=== PATIENT | male | born 1950 | race American Indian/Alaskan Native ===

== ENCOUNTER 2016-09-26 20:26 | Inpatient (IN) | payer OTHER ==
--- NOTE | 2016-09-26 22:37 | C.PDOC ---
History Of Present Illness <Aditi Zepeda - Last Filed: 09/26/16 23:08> <Quentin Gonzalez E - Last Filed: 09/27/16 00:25> 65 y/o male with hx of stents in legs about 4-5 yes ago for poor circulation, no follow up, presents to ED with a 2 day of bilateral leg pain and 'numbness', that feels like what pain felt when he first had circulatory problems in legs. pain in right leg worse than left, starts at hip and runs down leg., denies cp, sob, abdominal pain. (Aditi Zepeda) History/Exam Limitations: no limitations Onset/Duration Of Symptoms: Days (2) Current Symptoms Are (Timing): Still Present Severity: Moderate <Aditi Zepeda - Last Filed: 09/26/16 23:08> <Quentin Gonzalez E - Last Filed: 09/27/16 00:25> Time Seen by Provider: 09/26/16 22:08 Chief Complaint (Nursing): Hip Pain Past Medical History Reviewed: Historical Data, Nursing Documentation, Vital Signs - Medical History Other PMH: peripheral vascular disease Other Surgeries: bilateral leg stents Family History: States: Unknown Family Hx - Social History Hx Alcohol Use: No Hx Substance Use: No - Immunization History Hx Tetanus Toxoid Vaccination: No Hx Influenza Vaccination: No Hx Pneumococcal Vaccination: No <Aditi Zepeda - Last Filed: 09/26/16 23:08> Review Of Systems Constitutional: Negative for: Fever, Chills Cardiovascular: Negative for: Chest Pain, Palpitations Respiratory: Negative for: Cough, Shortness of Breath Gastrointestinal: Negative for: Vomiting, Abdominal Pain, Diarrhea Skin: Negative for: Rash, Lesions <Aditi Zepeda - Last Filed: 09/26/16 23:08> Physical Exam - Physical Exam Appears: Non-toxic, No Acute Distress Skin: Warm, Dry (skin extremely dry, scaly and flaky, eamon on lower ext) Respiratory: Normal Breath Sounds, No Rales, No Rhonchi, No Stridor, No Wheezing Gastrointestinal/Abdominal: Bowel Sounds, Soft, No Tenderness Pulses: Left Femoral: Decreased, Right Femoral: Decreased, Left Dorsalis Pedis: Absent, Right Dorsalis Pedis: Absent Neurological/Psych: Oriented x3, Normal Speech, Normal Cognition, Normal Motor <Aditi Zepeda - Last Filed: 09/26/16 23:08> ED Course And Treatment O2 Sat by Pulse Oximetry: 99 <Aditi Zepeda - Last Filed: 09/26/16 23:08> - Laboratory Results Result Diagrams: 09/26/16 23:01 09/26/16 23:46 Lab Interpretation: Abnormal Interpretation Of Abnormal: Renal insufficiency. Leukocytosis. ECG: Interpreted By Me, Viewed By Me ECG Rhythm: Sinus Rhythm, Nonspecific Changes ECG Interpretation: No Acute Changes Rate From EC Progress Note: Plan was to obtain CTA of lower extremities to check for arterial occlusion, however pt's renal function is not normal. Also, arterial duplex ultrasound is not available at this time. Will start pt on Heparin drip and admit for further evaluation and treatment. <Quentin Gonzalez E - Last Filed: 09/27/16 00:25> Medical Decision Making <Aditi Zepeda - Last Filed: 09/26/16 23:08> <Quentin Gonzalez E - Last Filed: 09/27/16 00:25> Medical Decision Makin65 y/o male with markedly decreased lower ext femoral pulses (right fainter than left)and non palpable dp and tp pulses in both lower ext; marilee get labs and do ct angio of lower extremities. (Aditi Zepeda) Disposition <Aditi Zepeda - Last Filed: 09/26/16 23:08> Discussed With DrRomelia: Shauna Giles Comment: He agrees with current management/plan and accepted pt on his service. Doctor Will See Patient In The: Hospital Counseled Patient/Family Regarding: Studies Performed, Diagnosis - Disposition Disposition Time: 00:23 <Quentin Gonzalez E - Last Filed: 09/27/16 00:25> - Disposition Disposition: HOSPITALIZED Condition: GUARDED - Clinical Impression Clinical Impression: Absent pedal pulses, Bilateral lower extremity pain - PA / EAP COUNSELOR / Resident Statement MD/DO has examined the patient and agrees with the treatment plan. <Quentin Gonzalez - Last Filed: 09/27/16 00:25>
[2016-09-26] MEDS ORDERED: Sodium Chloride 0.9% 1,000 ML IV ONE (22:44)
[2016-09-26 23:04] LABS: BASO # 0.1 K/uL (0.0-0.2); BASO % 0.7 % (0.0-2.0); HEMATOCRIT 44.7 % (35.0-51.0); LYMPH # 1.3 K/uL (1.0-4.3); LYMPH % 8.2 % (20.0-40.0); MEAN CELL VOLUME 94.5 fL (80.0-94.0); MEAN CORPUSCULAR HEMOGLOBIN 30.5 pg (27.0-31.0); MEAN CORPUSCULAR HGB CONC 32.2 g/dL (33.0-37.0); MEAN PLATELET VOLUME 9.2 fL (7.2-11.7); MONO # 1.5 K/uL (0.0-0.8); MONO % 9.1 % (0.0-10.0); PLATELET COUNT 177 K/uL (130-400); RED CELL DISTRIBUTION WIDTH 13.8 % (11.5-14.5); WHITE BLOOD COUNT 16.4 K/uL (4.8-10.8)
[2016-09-26 23:19] LABS: INR 1.1
[2016-09-26 23:41] LABS: NEUTROPHIL 80 % (50-75); TOTAL CELLS COUNTED 100
[2016-09-26 23:57] LABS: POTASSIUM 3.7 mmol/L (3.6-5.2)
[2016-09-27] LABS: ALB/GLOB RATIO 1.2 (1.0-2.1); CALCIUM 9.2 mg/dl (8.6-10.4); TOTAL PROTEIN 8.3 g/dL (6.3-8.3)
[2016-09-27] MEDS ORDERED: Heparin 25,000units in D5W 25,000 UNITS/250 ML BAG IV STA (00:18)
[2016-09-27] MEDS ORDERED: Heparin25000 units/250ml 1/2NS 25,000 UNITS/250 ML BAG IV STA (00:28)
--- NOTE | 2016-09-27 09:21 | CP.PCM.CON ---
<Kimo Yuen - Last Filed: 09/27/16 19:16> History of Present Illness - History of Present Illness History of Present Illness: Pt is a 65 yo M w/ PMHx of substance abuse and PAD w/ complaint of cramping leg pain. Pain began 2 days ago and localized to the R calf. Patient reports pain is intermittent and exacerbated by physical activity and relieved with rest. Patient reports R hip experiences cramping pain as well. Patient admits to fever , chills, headache, SOB, palpitations, vomiting and diarrhea. 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 absent: Chest Pain - Respiratory Respiratory: Dyspnea. absent: Cough - Gastrointestinal Gastrointestinal: Diarrhea, Vomiting. absent: Constipation, Nausea - Genitourinary Genitourinary: absent: Dysuria, Urinary Frequency - Musculoskeletal Musculoskeletal: absent: Joint Swelling - Integumentary Integumentary: absent: Rash, Sores, Swelling - Neurological Neurological: absent: Numbness, Tingling - Endocrine Endocrine: Palpitations. absent: Change in Body Appearance Past Patient History - Past Medical History & Family History Past Medical History?: Yes - Past Social History Smoking Status: Heavy Smoker > 10 Cigarettes Daily - CARDIAC Hx Circulatory Problems: Yes (PVD) - PULMONARY Hx Respiratory Disorders: No - NEUROLOGICAL Hx Neurological Disorder: No - HEENT Hx HEENT Problems: No - RENAL Hx Chronic Kidney Disease: No - ENDOCRINE/METABOLIC Hx Endocrine Disorders: No - HEMATOLOGICAL/ONCOLOGICAL Hx Blood Disorders: No - INTEGUMENTARY Hx Dermatological Problems: No - MUSCULOSKELETAL/RHEUMATOLOGICAL Hx Falls: No - GENITOURINARY/GYNECOLOGICAL Hx Genitourinary Disorders: No - PSYCHIATRIC Hx Substance Use: No - SURGICAL HISTORY Hx Surgeries: Yes Other/Comment: RIGHT LEG STENT - ANESTHESIA Hx Anesthesia: Yes Hx Anesthesia Reactions: No Hx Malignant Hyperthermia: No Has any member of the family had a problem w/ anesthesia?: No Meds Allergies/Adverse Reactions: Allergies Allergy/AdvReac Type Severity Reaction Status Date / Time No Known Allergies Allergy Verified 09/26/16 21:02 - Medications Medications: Current Medications Aspirin (Ecotrin) 325 mg PO DAILY [facility] Cilostazol (Pletal) 100 mg PO BID [facility] Heparin Sodium/Sodium Chloride (Heparin 99345 Units/250ml 1/2 Normal Saline) 25 ,000 units in 250 mls @ 12.247 mls/hr IV .[id number] STA; 18 UNITS/KG/HR PRN Reason: Protocol Stop: 09/27/16 20:52 Last Admin: 09/27/16 02:00 Dose: 18 units/kg/hr, 12.247 mls/hr Pantoprazole Sodium (Protonix Ec Tab) 40 mg PO DAILY [facility] Physical Exam - Constitutional Appears: Well, Non-toxic - Head Exam Head Exam: ATRAUMATIC, NORMOCEPHALIC - Eye Exam Eye Exam: Normal appearance - ENT Exam ENT Exam: Normal Exam - Respiratory Exam Respiratory Exam: Clear to Auscultation Bilateral, NORMAL BREATHING PATTERN - Cardiovascular Exam Cardiovascular Exam: Irregular Rhythm, +S1, +S2 - GI/Abdominal Exam GI & Abdominal Exam: Normal Bowel Sounds - Extremities Exam Extremities exam: Positive for: calf tenderness, normal capillary refill. Negative for: pedal pulses present Additional comments: Absent dorsalis pedis and posterior tibial pulses BL Weak popliteal pulses BL Absent R femoral pulse - Neurological Exam Neurological exam: Alert Additional comments: absent sensation to touch in R LE in L5-S1 dermatome. - Skin Skin Exam: Dry Results - Vital Signs Recent Vital Signs: Last Vital Signs Temp 98 F 09/27/16 04:00 Pulse 73 09/27/16 04:00 Resp 18 09/27/16 04:00 BP 121/65 09/27/16 04:00 Pulse Ox 96 09/27/16 04:00 - Labs Result Diagrams: 09/27/16 11:25 09/27/16 11:25 Assessment & Plan - Assessment and Plan (Free Text) Assessment: Pt is a 65 year old M complaining of leg clamps. Plan: CTA w/ illeofemoral runoff once Cr improves will d/w Dr Clarissa Yuen, PGY2 - Date & Time Date: 09/27/16 Time: 19:17 <Luc Romo - Last Filed: 09/28/16 14:22> Meds - Medications Medications: Current Medications Aspirin (Ecotrin) 325 mg PO DAILY [facility] Last Admin: 09/28/16 10:15 Dose: 325 mg Cilostazol (Pletal) 100 mg PO BID [facility] Last Admin: 09/28/16 13:48 Dose: 100 mg Sodium Chloride (Sodium Chloride 0.9%) 1,000 mls @ 100 mls/hr IV .Q10H [facility] Last Admin: 09/28/16 06:34 Dose: 100 mls/hr Heparin Sodium/Sodium Chloride (Heparin 28484 Units/250ml 1/2 Normal Saline) 25 ,000 units in 250 mls @ 16.054 mls/hr IV .[id number] PRN; Protocol; 23 UNITS/KG/HR PRN Reason: PROTOCOL Last Admin: 09/28/16 13:50 Dose: 23 units/kg/hr, 16.054 mls/hr Pantoprazole Sodium (Protonix Ec Tab) 40 mg PO DAILY [facility] Last Admin: 09/28/16 10:15 Dose: 40 mg Temazepam (Restoril) 15 mg PO HS PRN PRN Reason: Insomnia Last Admin: 09/28/16 13:48 Dose: 15 mg Results - Vital Signs Recent Vital Signs: Last Vital Signs Temp 99.2 F 09/28/16 00:00 Pulse 82 09/28/16 08:00 Resp 20 09/28/16 06:00 BP 127/62 09/28/16 06:00 Pulse Ox 97 09/28/16 06:00 - Labs Result Diagrams: 09/28/16 06:21 09/28/16 06:21 Labs: Laboratory Results - last 24 hr 09/27/16 09/27/16 09/28/16 14:45 22:00 06:21 WBC RBC Hgb Hct MCV MCH MCHC RDW Plt Count MPV APTT 24 D 27 Sodium 138 Potassium 4.1 Chloride 110 H Carbon Dioxide 19 L Anion Gap 13 BUN 21 H Creatinine 1.4 Est GFR ( Amer) > 60 Est GFR (Non-Af Amer) 51 Random Glucose 100 Calcium 8.6 Urine Opiates Screen Urine Methadone Screen Ur Barbiturates Screen Ur Phencyclidine Scrn Ur Amphetamines Screen U Benzodiazepines Scrn U Oth Cocaine Metabols U Cannabinoids Screen 09/28/16 09/28/16 09/28/16 06:21 08:30 11:22 WBC 11.2 H RBC 3.92 L Hgb 12.0 Hct 37.4 MCV 95.3 H MCH 30.6 MCHC 32.1 L RDW 13.5 Plt Count 142 MPV 9.6 APTT > 400 H* D > 400 H* Sodium Potassium Chloride Carbon Dioxide Anion Gap BUN Creatinine Est GFR ( Amer) Est GFR (Non-Af Amer) Random Glucose Calcium Urine Opiates Screen Urine Methadone Screen Ur Barbiturates Screen Ur Phencyclidine Scrn Ur Amphetamines Screen U Benzodiazepines Scrn U Oth Cocaine Metabols U Cannabinoids Screen 09/28/16 13:05 WBC RBC Hgb Hct MCV MCH MCHC RDW Plt Count MPV APTT Sodium Potassium Chloride Carbon Dioxide Anion Gap BUN Creatinine Est GFR ( Amer) Est GFR (Non-Af Amer) Random Glucose Calcium Urine Opiates Screen Positive Urine Methadone Screen Negative Ur Barbiturates Screen Negative Ur Phencyclidine Scrn Negative Ur Amphetamines Screen Negative U Benzodiazepines Scrn Positive U Oth Cocaine Metabols Negative U Cannabinoids Screen Negative Assessment & Plan - Assessment and Plan (Free Text) Assessment: Patient seen and examined. History reviewed. Patient with known peripheral arterial disease who underwent, by his report, arterial stenting in his lower extremities 4-5 years ago in one of [facility]. Patient has been doing reasonably well until this this presentation when he developed pain in his lower extremities bilaterally worse on the right. He was admitted to the ICU at [facility] and started on Heparin drip with improvement of his lower extremities pain. He was found to have increased creatinine and complained of heroine withdrawal symptoms. Lower extremities are exhibiting signs of advanced peripheral arterial disease and chronic ischemia. Clinically, lower extremities show no signs of infection, gangrene, tissue loss or profound motor-sensory compromise. Lower extremities do not appear immediately threatened at this moment. Patient needs contrast evaluation of his lower extremities arterial supply with CT angiogram of the abdomen, pelvis and lower extremities which we plan to obtain once patient is hydrated and his renal function improves. Patient quite likely will need diagnostic, possibly therapeutic angiogram, but we'll leave this decision till after review of CT angio. Thank you for your consult and allowing us to participate in this patient's care.
[2016-09-27] MEDS: Aspirin 325 mg EC Tablets PO SCH (10:38)
[2016-09-27] MEDS: Pantoprazole 40 mg EC Tab PO SCH (10:38)
[2016-09-27] MEDS: Cilostazol 100 mg Tab UD PO SCH ×2 (10:38→20:03)
[2016-09-27 11:32] LABS: BASO # 0.1 K/uL (0.0-0.2); BASO % 0.8 % (0.0-2.0); EOS % 0.1 % (0.0-4.0); HEMATOCRIT 40.3 % (35.0-51.0); LYMPH # 2.7 K/uL (1.0-4.3); LYMPH % 19.4 % (20.0-40.0); MEAN CELL VOLUME 94.9 fL (80.0-94.0); MEAN CORPUSCULAR HEMOGLOBIN 30.4 pg (27.0-31.0); MEAN PLATELET VOLUME 9.4 fL (7.2-11.7); MONO # 0.9 K/uL (0.0-0.8); MONO % 6.8 % (0.0-10.0); RED CELL DISTRIBUTION WIDTH 13.5 % (11.5-14.5); WHITE BLOOD COUNT 13.8 K/uL (4.8-10.8)
[2016-09-27 11:49] LABS: POTASSIUM 3.4 mmol/L (3.6-5.2)
[2016-09-27 11:51] LABS: ALB/GLOB RATIO 1.2 (1.0-2.1); BILIRUBIN,TOTAL 1.2 mg/dL (0.2-1.3); PHOSPHOROUS 3.1 mg/dL (2.5-4.5); TOTAL PROTEIN 7.6 g/dL (6.3-8.3)
[2016-09-27 11:52] LABS: CALCIUM 8.8 mg/dl (8.6-10.4); MAGNESIUM 2.1 mg/dL (1.6-2.3)
--- NOTE | 2016-09-27 12:04 | CP.PCM.HP ---
Past Patient History - Past Medical History & Family History Past Medical History?: Yes - Past Social History Smoking Status: Heavy Smoker > 10 Cigarettes Daily - CARDIAC Hx Circulatory Problems: Yes (PVD) - PULMONARY Hx Respiratory Disorders: No - NEUROLOGICAL Hx Neurological Disorder: No - HEENT Hx HEENT Problems: No - RENAL Hx Chronic Kidney Disease: No - ENDOCRINE/METABOLIC Hx Endocrine Disorders: No - HEMATOLOGICAL/ONCOLOGICAL Hx Blood Disorders: No - INTEGUMENTARY Hx Dermatological Problems: No - MUSCULOSKELETAL/RHEUMATOLOGICAL Hx Falls: No - GENITOURINARY/GYNECOLOGICAL Hx Genitourinary Disorders: No - PSYCHIATRIC Hx Substance Use: No - SURGICAL HISTORY Hx Surgeries: Yes Other/Comment: RIGHT LEG STENT - ANESTHESIA Hx Anesthesia: Yes Hx Anesthesia Reactions: No Hx Malignant Hyperthermia: No Has any member of the family had a problem w/ anesthesia?: No Meds Allergies/Adverse Reactions: Allergies Allergy/AdvReac Type Severity Reaction Status Date / Time No Known Allergies Allergy Verified 09/26/16 21:02 Physical Exam - Constitutional Appears: Well - Head Exam Head Exam: ATRAUMATIC, NORMAL INSPECTION, NORMOCEPHALIC - Eye Exam Eye Exam: EOMI, Normal appearance, PERRL Pupil Exam: NORMAL ACCOMODATION, PERRL - ENT Exam ENT Exam: Mucous Membranes Moist, Normal Exam - Neck Exam Neck exam: Positive for: Normal Inspection - Respiratory Exam Respiratory Exam: Decreased Breath Sounds - Cardiovascular Exam Cardiovascular Exam: REGULAR RHYTHM, +S1, +S2 - GI/Abdominal Exam GI & Abdominal Exam: Diminished Bowel Sounds, Soft - Rectal Exam Rectal Exam: Deferred Results - Vital Signs Recent Vital Signs: Last Vital Signs Temp 98 F 09/27/16 04:00 Pulse 73 09/27/16 04:00 Resp 18 09/27/16 04:00 BP 121/65 09/27/16 04:00 Pulse Ox 96 09/27/16 04:00 - Labs Result Diagrams: 09/27/16 11:25 09/27/16 11:25 Labs: Laboratory Results - last 24 hr 09/27/16 09/27/16 09/27/16 08:42 11:25 11:25 WBC 13.8 H RBC 4.24 L Hgb 12.9 Hct 40.3 MCV 94.9 H MCH 30.4 MCHC 32.0 L RDW 13.5 Plt Count 150 MPV 9.4 Neut % (Auto) 72.9 Lymph % (Auto) 19.4 L Dukes % (Auto) 6.8 Eos % (Auto) 0.1 Baso % (Auto) 0.8 Neut # 10.1 H Lymph # 2.7 Dukes # 0.9 H Eos # 0.0 Baso # 0.1 APTT 81 H D Sodium 138 Potassium 3.4 L Chloride 102 Carbon Dioxide 24 Anion Gap 15 BUN 29 H Creatinine 1.9 H Est GFR ( Amer) 44 Est GFR (Non-Af Amer) 36 Random Glucose 103 Calcium 8.8 Phosphorus 3.1 Magnesium 2.1 Total Bilirubin 1.2 AST 35 ALT 22 Alkaline Phosphatase 94 Total Protein 7.6 Albumin 4.1 Globulin 3.5 Albumin/Globulin Ratio 1.2
[2016-09-27] MEDS ORDERED: Potassium Chloride 20 mEq ER Tab PO ONE (14:15)
[2016-09-27] MEDS: Heparin25000 units/250ml 1/2NS 25,000 UNITS/250 ML BAG IV PRN ×2 (17:28→22:05)
[2016-09-27] MEDS: Sodium Chloride 0.9% 1,000 ML IV SCH (19:56)
[2016-09-27] MEDS ORDERED: Heparin25000 units/250ml 1/2NS 25,000 UNITS/250 ML BAG IV PRN (23:03)
[2016-09-28 06:27] LABS: HEMATOCRIT 37.4 % (35.0-51.0); MEAN CELL VOLUME 95.3 fL (80.0-94.0); MEAN CORPUSCULAR HEMOGLOBIN 30.6 pg (27.0-31.0); MEAN CORPUSCULAR HGB CONC 32.1 g/dL (33.0-37.0); MEAN PLATELET VOLUME 9.6 fL (7.2-11.7); RED CELL DISTRIBUTION WIDTH 13.5 % (11.5-14.5); WHITE BLOOD COUNT 11.2 K/uL (4.8-10.8)
[2016-09-28] MEDS: Sodium Chloride 0.9% 1,000 ML IV SCH ×5 (06:34→23:12)
[2016-09-28 06:49] LABS: CHLORIDE 110 mmol/L (98-107); POTASSIUM 4.1 mmol/L (3.6-5.2); SODIUM 138 mmol/L (132-148)
[2016-09-28 06:52] LABS: CARBON DIOXIDE 19 mmol/L (22-30); GFR AFRICAN-AMERICAN > 60
[2016-09-28 06:53] LABS: BLOOD UREA NITROGEN 21 mg/dL (9-20); CALCIUM 8.6 mg/dl (8.6-10.4); GLUCOSE,RANDOM 100 mg/dL (75-110)
--- NOTE | 2016-09-28 09:52 | CP.PCM.PN ---
<Enrike Maddox D - Last Filed: 09/28/16 09:52> Subjective - Date & Time of Evaluation Date of Evaluation: 09/28/16 Time of Evaluation: 05:52 - Subjective Subjective: SURGERY PROGRESS NOTE FOR DR. ROMO 65M seen and examined at bedside. Patient is resting comfortable. States LE pain is less with right greater than left. Objective - Vital Signs/Intake and Output Vital Signs (last 24 hours): Temp Pulse Resp BP Pulse Ox 99.2 F 88 20 127/62 97 09/28/16 00:00 09/28/16 06:00 09/28/16 06:00 09/28/16 06:00 09/28/16 06:00 Intake and Output: 09/28/16 09/28/16 06:59 18:59 Intake Total 742.8 Output Total 1400 Balance -657.2 - Medications Medications: Current Medications Aspirin (Ecotrin) 325 mg PO DAILY [facility] Last Admin: 09/27/16 10:38 Dose: 325 mg Cilostazol (Pletal) 100 mg PO BID [facility] Last Admin: 09/27/16 20:03 Dose: 100 mg Sodium Chloride (Sodium Chloride 0.9%) 1,000 mls @ 100 mls/hr IV .Q10H [facility] Last Admin: 09/28/16 06:34 Dose: 100 mls/hr Heparin Sodium/Sodium Chloride (Heparin 74548 Units/250ml 1/2 Normal Saline) 25 ,000 units in 250 mls @ 18.148 mls/hr IV .[id number] PRN; Protocol; 26 UNITS/KG/HR PRN Reason: PROTOCOL Last Admin: 09/27/16 23:31 Dose: 26 units/kg/hr, 18.148 mls/hr Pantoprazole Sodium (Protonix Ec Tab) 40 mg PO DAILY [facility] Last Admin: 09/27/16 10:38 Dose: 40 mg Temazepam (Restoril) 15 mg PO HS PRN PRN Reason: Insomnia Last Admin: 09/27/16 22:44 Dose: 15 mg - Labs Labs: 09/28/16 06:21 09/28/16 06:21 PT 11.9 SECONDS (9.7-12.2) 09/26/16 23:01 INR 1.1 09/26/16 23:01 APTT > 400 SECONDS (21-34) H* D 09/28/16 08:30 - Constitutional Appears: Non-toxic, No Acute Distress - Respiratory Exam Respiratory Exam: Clear to Ausculation Bilateral, NORMAL BREATHING PATTERN - Cardiovascular Exam Cardiovascular Exam: REGULAR RHYTHM, +S1, +S2 - Extremities Exam Additional comments: Absent dorsalis pedis and posterior tibial pulses BL Weak popliteal pulses BL Absent R femoral pulse - Neurological Exam Neurological Exam: Alert, Awake Assessment and Plan - Assessment and Plan (Free Text) Assessment: 65M with lower extremity vascular disease - follow up Angiography abdomen with distal runoff - follow up arterial Duplex Lower extremity with BRANDT Discussed with Dr. Clarissa Maddox, PGY1 <Luc Romo - Last Filed: 09/28/16 12:44> Subjective - Subjective Subjective: Patient seen and examined. Patient complains of heroin withdrawal symptoms and threatens to leave AMA. He states his feet feel better since institution of heparin drip. He denies significant or increasing pain as well as progressive motor-sensory compromise in his feet or toes. Clinically, both feet and toes are essentially unchanged since yesterday. Feet are not ice cold with preserved motor function and sensation. There are no signs of infection, tissue loss or gangrenous changes. There is no obvious evidence of severe immediately acute limb ischemia this moment. Continue Heparin drip, ICU care and management of heroin withdrawal symptoms. CT angiogram of abdomen and pelvis with bilateral lower extremities runoff today. Will formulate plan of care from vascular standpoint based on and according to CT angio results - likely diagnostic possibly therapeutic angiogram of the lower extremities. Will follow closely. Objective - Vital Signs/Intake and Output Vital Signs (last 24 hours): Temp Pulse Resp BP Pulse Ox 99.2 F 82 20 127/62 97 09/28/16 00:00 09/28/16 08:00 09/28/16 06:00 09/28/16 06:00 09/28/16 06:00 Intake and Output: 09/28/16 09/28/16 06:59 18:59 Intake Total 742.8 Output Total 1400 Balance -657.2 - Medications Medications: Current Medications Aspirin (Ecotrin) 325 mg PO DAILY [facility] Last Admin: 09/28/16 10:15 Dose: 325 mg Cilostazol (Pletal) 100 mg PO BID [facility] Last Admin: 09/27/16 20:03 Dose: 100 mg Sodium Chloride (Sodium Chloride 0.9%) 1,000 mls @ 100 mls/hr IV .Q10H [facility] Last Admin: 09/28/16 06:34 Dose: 100 mls/hr Heparin Sodium/Sodium Chloride (Heparin 00692 Units/250ml 1/2 Normal Saline) 25 ,000 units in 250 mls @ 18.148 mls/hr IV .[id number] PRN; Protocol; 26 UNITS/KG/HR PRN Reason: PROTOCOL Last Admin: 09/27/16 23:31 Dose: 26 units/kg/hr, 18.148 mls/hr Pantoprazole Sodium (Protonix Ec Tab) 40 mg PO DAILY [facility] Last Admin: 09/28/16 10:15 Dose: 40 mg Temazepam (Restoril) 15 mg PO HS PRN PRN Reason: Insomnia Last Admin: 09/27/16 22:44 Dose: 15 mg - Labs Labs: 09/28/16 06:21 09/28/16 06:21 PT 11.9 SECONDS (9.7-12.2) 09/26/16 23:01 INR 1.1 09/26/16 23:01 APTT > 400 SECONDS (21-34) H* 09/28/16 11:22
[2016-09-28] MEDS: Pantoprazole 40 mg EC Tab PO SCH (10:15)
[2016-09-28] MEDS: Aspirin 325 mg EC Tablets PO SCH (10:15)
[2016-09-28] MEDS ORDERED: Iodixanol 320 mg/ml 150 ml Bottle IV ONE (12:55)
[2016-09-28] MEDS ORDERED: Heparin25000 units/250ml 1/2NS 25,000 UNITS/250 ML BAG IV PRN (13:15)
[2016-09-28] MEDS: Cilostazol 100 mg Tab UD PO SCH ×2 (13:48→17:45)
--- NOTE | 2016-09-28 15:05 | CT ---
PROCEDURE: CT Angiography Abdomen, Pelvis and Lower Extremity with Contrast HISTORY: Peripheral vascular disease, iliac artery stents COMPARISON: None. TECHNIQUE: Technique: CT angiography of the abdomen, pelvis and bilateral lower extremities performed in the arterial phase of enhancement. Coronal and sagittal reformats, and well as rotating MIP images of the vessels generated at the workstation. Intravenous contrast dose: 150 milliliters Visipaque 320 Radiation dose: Total exam DLP = 1089.30 MGy-cm. This CT exam was performed using one or more of the following dose reduction techniques: Automated exposure control, adjustment of the mA and/or kV according to patient size, and/or use of iterative reconstruction technique. FINDINGS: CT ANGIOGRAPHY: ABDOMINAL AORTA:: The suprarenal aorta is unremarkable. There is moderate plaque in the infra renal aortic. This soft thrombus noted within the lower aorta near the bifurcation. MAJOR AORTIC BRANCHES: Celiac [place]: Unremarkable. Superior mesenteric artery: Aneurysmal dilatation of the SMA. Inferior mesenteric artery: Unremarkable. Renal arteries: Unremarkable. PELVIC ARTERIES: Right Common Iliac: Occlusion of right common iliac artery stent. Right External Iliac: Unremarkable. Right Internal Iliac: Heavily calcified internal iliac artery with severe stenosis Left Common Iliac: Left common iliac artery stent is patent. Left External Iliac: Unremarkable. Left Internal Iliac: Heavily calcified internal iliac artery with moderate stenosis RIGHT LOWER EXTREMITY ARTERIES: Right Common Femoral: Unremarkable. Right Superficial Femoral: Unremarkable. Right Profunda Femoris: Unremarkable. Right Popliteal:Unremarkable. Right Anterior Tibial: Unremarkable. Right Tibioperoneal Trunk: Unremarkable. Right Posterior Tibial: Unremarkable. Right Peroneal: Unremarkable. Right dorsalis pedis : Unremarkable. LEFT LOWER EXTREMITY ARTERIES: Left Common Femoral: Unremarkable. Left Superficial Femoral: Unremarkable. Left Profunda Femoris: Unremarkable. Left Popliteal: Unremarkable. Left Anterior Tibial: Unremarkable. Left Tibioperoneal Trunk: Unremarkable. Left Posterior Tibial: Unremarkable. Left Peronea: Unremarkable. Left Dorsalis pedis: Unremarkable. NON-ANGIOGRAPHIC ASPECT OF THE EXAM: LOWER THORAX: Unremarkable. LIVER: Unremarkable. No gross lesion or ductal dilatation. GALLBLADDER AND BILE DUCTS: Unremarkable. PANCREAS: Unremarkable. No gross lesion or ductal dilatation. SPLEEN: Unremarkable. ADRENALS: Unremarkable. No mass. KIDNEYS AND URETERS: Unremarkable. No hydronephrosis. No solid mass. STOMACH AND BOWEL: Limited evaluation of PO contrast. No obstruction. No gross mural thickening. APPENDIX: PERITONEUM: Unremarkable. No free fluid. No free air. LYMPH NODES: Unremarkable. No enlarged lymph nodes. BLADDER: Unremarkable. REPRODUCTIVE: Unremarkable. BONES: No acute fracture. OTHER FINDINGS: None. IMPRESSION: CT ANGIOGRAM ABDOMEN/ PELVIS: 1.Moderate calcific plaque in the lower abdominal aorta with soft thrombus near the bifurcation. 2. Occlusion of the right common iliac artery stent. 3. Patent left common iliac artery stent. RIGHT LOWER EXTREMITY CT ANGIOGRAM: 1. Unremarkable CT angiogram of the right lower extremity. The anterior tibial artery, posterior tibial artery, and peroneal artery patent. LEFT LOWER EXTREMITY CT ANGIOGRAM: 1. Unremarkable CT angiogram of the right lower extremity. The anterior tibial artery, posterior tibial artery, and peroneal artery patent. NONVASCULAR FINDINGS:
--- NOTE | 2016-09-28 17:20 | CP.PCM.PN ---
Subjective - Date & Time of Evaluation Date of Evaluation: 09/28/16 Time of Evaluation: 13:20 - Subjective Subjective: clinically same Objective - Vital Signs/Intake and Output Vital Signs (last 24 hours): Temp Pulse Resp BP Pulse Ox 99.2 F 82 20 127/62 97 09/28/16 00:00 09/28/16 08:00 09/28/16 06:00 09/28/16 06:00 09/28/16 06:00 Intake and Output: 09/28/16 09/28/16 06:59 18:59 Intake Total 742.8 Output Total 1400 Balance -657.2 - Medications Medications: Current Medications Aspirin (Ecotrin) 325 mg PO DAILY [facility] Last Admin: 09/28/16 10:15 Dose: 325 mg Cilostazol (Pletal) 100 mg PO BID [facility] Last Admin: 09/28/16 13:48 Dose: 100 mg Sodium Chloride (Sodium Chloride 0.9%) 1,000 mls @ 100 mls/hr IV .Q10H [facility] Last Admin: 09/28/16 06:34 Dose: 100 mls/hr Heparin Sodium/Sodium Chloride (Heparin 27633 Units/250ml 1/2 Normal Saline) 25 ,000 units in 250 mls @ 16.054 mls/hr IV .[id number] PRN; Protocol; 23 UNITS/KG/HR PRN Reason: PROTOCOL Last Admin: 09/28/16 13:50 Dose: 23 units/kg/hr, 16.054 mls/hr Pantoprazole Sodium (Protonix Ec Tab) 40 mg PO DAILY [facility] Last Admin: 09/28/16 10:15 Dose: 40 mg Temazepam (Restoril) 15 mg PO HS PRN PRN Reason: Insomnia Last Admin: 09/28/16 13:48 Dose: 15 mg - Labs Labs: 09/28/16 06:21 09/28/16 06:21 PT 11.9 SECONDS (9.7-12.2) 09/26/16 23:01 INR 1.1 09/26/16 23:01 APTT > 400 SECONDS (21-34) H* 09/28/16 11:22 - Constitutional Appears: Well - Head Exam Head Exam: ATRAUMATIC, NORMAL INSPECTION, NORMOCEPHALIC - Eye Exam Eye Exam: EOMI, Normal appearance, PERRL Pupil Exam: NORMAL ACCOMODATION, PERRL - ENT Exam ENT Exam: Mucous Membranes Moist, Normal Exam - Neck Exam Neck Exam: Full ROM, Normal Inspection. absent: Lymphadenopathy - Respiratory Exam Respiratory Exam: Decreased Breath Sounds - Cardiovascular Exam Cardiovascular Exam: REGULAR RHYTHM, +S1, +S2 - GI/Abdominal Exam GI & Abdominal Exam: Soft, Diminished Bowel Sounds - Rectal Exam Rectal Exam: Deferred
--- NOTE | 2016-09-28 23:25 | CARD ---
APPROVED REPORT EKG Measurement Heart [id number] <Conclusion> Sinus rhythm with premature atrial complexes Nonspecific T wave abnormality Prolonged QT Abnormal ECG
[2016-09-29 04:27] VITALS: BP 163/70; PULSE 74; RESP 20; TEMP 98.8; O2SAT 96
[2016-09-29 05:37] LABS: HEMATOCRIT 36.3 % (35.0-51.0); MEAN CELL VOLUME 93.7 fL (80.0-94.0); MEAN CORPUSCULAR HEMOGLOBIN 31.1 pg (27.0-31.0); MEAN CORPUSCULAR HGB CONC 33.2 g/dL (33.0-37.0); MEAN PLATELET VOLUME 9.8 fL (7.2-11.7); RED CELL DISTRIBUTION WIDTH 13.5 % (11.5-14.5); WHITE BLOOD COUNT 13.9 K/uL (4.8-10.8)
--- NOTE | 2016-09-29 07:03 | CP.PCM.PN ---
<Enrike Maddox D - Last Filed: 09/29/16 07:06> Subjective - Date & Time of Evaluation Date of Evaluation: 09/29/16 Time of Evaluation: 07:01 - Subjective Subjective: SURGERY NOTE FOR DR. ROMO 65M seen and examined at bedside. Patient resting comfortably, NAEON. PPT down to 140. Objective - Vital Signs/Intake and Output Vital Signs (last 24 hours): Temp Pulse Resp BP Pulse Ox 98.8 F 74 20 163/70 H 96 09/29/16 04:00 09/29/16 04:00 09/29/16 04:00 09/29/16 04:00 09/29/16 04:00 Intake and Output: 09/29/16 09/29/16 06:59 18:59 Intake Total 0 Balance 0 - Medications Medications: Current Medications Aspirin (Ecotrin) 325 mg PO DAILY [facility] Last Admin: 09/28/16 10:15 Dose: 325 mg Cilostazol (Pletal) 100 mg PO BID [facility] Last Admin: 09/28/16 17:45 Dose: 100 mg Sodium Chloride (Sodium Chloride 0.9%) 1,000 mls @ 100 mls/hr IV .Q10H [facility] Last Admin: 09/28/16 23:12 Dose: Not Given Heparin Sodium/Sodium Chloride (Heparin 89525 Units/250ml 1/2 Normal Saline) 25 ,000 units in 250 mls @ 16.054 mls/hr IV .[id number] PRN; Protocol; 23 UNITS/KG/HR PRN Reason: PROTOCOL Last Titration: 09/28/16 22:12 Dose: 17 units/kg/hr, 11.866 mls/hr Pantoprazole Sodium (Protonix Ec Tab) 40 mg PO DAILY [facility] Last Admin: 09/28/16 10:15 Dose: 40 mg Temazepam (Restoril) 15 mg PO HS PRN PRN Reason: Insomnia Last Admin: 09/28/16 13:48 Dose: 15 mg - Labs Labs: 09/29/16 05:32 09/28/16 06:21 PT 11.9 SECONDS (9.7-12.2) 09/26/16 23:01 INR 1.1 09/26/16 23:01 APTT 140 SECONDS (21-34) H* D 09/29/16 05:32 - Constitutional Appears: Non-toxic, No Acute Distress - Respiratory Exam Respiratory Exam: Clear to Ausculation Bilateral, NORMAL BREATHING PATTERN - Cardiovascular Exam Cardiovascular Exam: REGULAR RHYTHM, +S1, +S2 - GI/Abdominal Exam GI & Abdominal Exam: Soft. 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 I will try to reach out to him and bring him to our office as an outpatient. Objective - Vital Signs/Intake and Output Vital Signs (last 24 hours): Temp Pulse Resp BP Pulse Ox 98.8 F 74 20 163/70 H 96 09/29/16 04:00 09/29/16 04:00 09/29/16 04:00 09/29/16 04:00 09/29/16 04:00 Intake and Output: 09/29/16 09/29/16 06:59 18:59 Intake Total 0 1680 Output Total 900 Balance 0 780 - Medications Medications: Current Medications Aspirin (Ecotrin) 325 mg PO DAILY [facility] Last Admin: 09/29/16 09:41 Dose: 325 mg Cilostazol (Pletal) 100 mg PO BID [facility] Last Admin: 09/29/16 09:42 Dose: 100 mg Sodium Chloride (Sodium Chloride 0.9%) 1,000 mls @ 100 mls/hr IV .Q10H [facility] Last Admin: 09/29/16 07:24 Dose: 100 mls/hr Heparin Sodium/Sodium Chloride (Heparin 57440 Units/250ml 1/2 Normal Saline) 25 ,000 units in 250 mls @ 10.206 mls/hr IV .Q24H PRN; Protocol; 18 UNITS/KG/HR PRN Reason: PROTOCOL Last Admin: 09/29/16 08:35 Dose: 14 units/kg/hr, 7.938 mls/hr Pantoprazole Sodium (Protonix Ec Tab) 40 mg PO DAILY [facility] Last Admin: 09/29/16 09:42 Dose: 40 mg Temazepam (Restoril) 15 mg PO HS PRN PRN Reason: Insomnia Last Admin: 09/28/16 13:48 Dose: 15 mg - Labs Labs: 09/29/16 05:32 09/28/16 06:21 PT 11.9 SECONDS (9.7-12.2) 09/26/16 23:01 INR 1.1 09/26/16 23:01 APTT 75 SECONDS (21-34) H D 09/29/16 08:58
[2016-09-29] MEDS: Sodium Chloride 0.9% 1,000 ML IV SCH ×2 (07:24→10:00)
[2016-09-29] MEDS ORDERED: Heparin25000 units/250ml 1/2NS 25,000 UNITS/250 ML BAG IV PRN ×2 (07:28→07:58)
[2016-09-29] MEDS: Aspirin 325 mg EC Tablets PO SCH (09:41)
[2016-09-29] MEDS: Pantoprazole 40 mg EC Tab PO SCH (09:42)
[2016-09-29] MEDS: Cilostazol 100 mg Tab UD PO SCH (09:42)
--- NOTE | 2016-09-29 12:39 | CP.PCM.PN ---
Subjective - Date & Time of Evaluation Date of Evaluation: 09/29/16 Time of Evaluation: 11:40 - Subjective Subjective: clinically same Objective - Vital Signs/Intake and Output Vital Signs (last 24 hours): Temp Pulse Resp BP Pulse Ox 98.8 F 74 20 163/70 H 96 09/29/16 04:00 09/29/16 04:00 09/29/16 04:00 09/29/16 04:00 09/29/16 04:00 Intake and Output: 09/29/16 09/29/16 06:59 18:59 Intake Total 0 1680 Output Total 900 Balance 0 780 - Medications Medications: Current Medications Aspirin (Ecotrin) 325 mg PO DAILY [facility] Last Admin: 09/29/16 09:41 Dose: 325 mg Cilostazol (Pletal) 100 mg PO BID [facility] Last Admin: 09/29/16 09:42 Dose: 100 mg Sodium Chloride (Sodium Chloride 0.9%) 1,000 mls @ 100 mls/hr IV .Q10H [facility] Last Admin: 09/29/16 07:24 Dose: 100 mls/hr Heparin Sodium/Sodium Chloride (Heparin 00992 Units/250ml 1/2 Normal Saline) 25 ,000 units in 250 mls @ 10.206 mls/hr IV .Q24H PRN; Protocol; 18 UNITS/KG/HR PRN Reason: PROTOCOL Last Admin: 09/29/16 08:35 Dose: 14 units/kg/hr, 7.938 mls/hr Pantoprazole Sodium (Protonix Ec Tab) 40 mg PO DAILY [facility] Last Admin: 09/29/16 09:42 Dose: 40 mg Temazepam (Restoril) 15 mg PO HS PRN PRN Reason: Insomnia Last Admin: 09/28/16 13:48 Dose: 15 mg - Labs Labs: 09/29/16 05:32 09/28/16 06:21 PT 11.9 SECONDS (9.7-12.2) 09/26/16 23:01 INR 1.1 09/26/16 23:01 APTT 75 SECONDS (21-34) H D 09/29/16 08:58 - Constitutional Appears: Well - Head Exam Head Exam: ATRAUMATIC, NORMAL INSPECTION, NORMOCEPHALIC - Eye Exam Eye Exam: EOMI, Normal appearance, PERRL Pupil Exam: NORMAL ACCOMODATION, PERRL - ENT Exam ENT Exam: Mucous Membranes Moist, Normal Exam - Neck Exam Neck Exam: Full ROM, Normal Inspection. absent: Lymphadenopathy - Respiratory Exam Respiratory Exam: Decreased Breath Sounds - Cardiovascular Exam Cardiovascular Exam: REGULAR RHYTHM, +S1, +S2 - GI/Abdominal Exam GI & Abdominal Exam: Soft, Diminished Bowel Sounds - Rectal Exam Rectal Exam: Deferred
== END 2016-09-29 12:45 | disposition left against medical advice (07) | DRG 820 ==
LOC: C.ER 20:26 → C.9E 09-27 00:25 → C.9I 09-27 01:27
PROVIDERS: ADMIT Internal Medicine Nephrology; ATTEND Internal Medicine Nephrology
DX: T82.898A Other specified complication of vascular prosthetic devices, implants and grafts, initial encounter (principal); F11.23 Opioid dependence with withdrawal; I73.9 Peripheral vascular disease, unspecified; F17.210 Nicotine dependence, cigarettes, uncomplicated; Y83.1 Surgical operation with implant of artificial internal device as the cause of abnormal reaction of the patient, or of later complication, without mention of misadventure at the time of the procedure

== ENCOUNTER 2017-06-19 19:23 | Emergency (ER) | payer OTHER ==
[2017-06-19 19:53] VITALS: TEMP 97.8; O2SAT 98
--- NOTE | 2017-06-19 20:06 | C.PDOC ---
History Of Present Illness 66 year old male presents to the ER with a complaint of chronic right leg swelling and cramping that was worsened over the past few days. Patient has a Hx of stent placement to the right leg in 09/2016, he reports the pain feels similar to that time. Denies SOB, chest pain, or fever. Patient also reports having intermittently numbness to the tips of his left fingers; denies numbness of the left hand or numbness of the right hand. Patient has a Hx of IVDA, last use was today. Time Seen by Provider: 06/19/17 19:55 Chief Complaint (Nursing): Lower Extremity Problem/Injury History Per: Patient History/Exam Limitations: no limitations Onset/Duration Of Symptoms: Days Current Symptoms Are (Timing): Still Present Recent travel outside of the [place]: No Past Medical History Reviewed: Historical Data, Nursing Documentation, Vital Signs Vital Signs: Last Vital Signs Temp 97.8 F 06/19/17 19:49 Pulse 80 06/19/17 19:49 Resp 18 06/19/17 19:49 BP 156/72 H 06/19/17 19:49 Pulse Ox 98 06/19/17 21:13 Family History: States: Unknown Family Hx - Social History Hx Alcohol Use: Yes ([employer]) Hx Substance Use: No - Immunization History Hx Tetanus Toxoid Vaccination: No Hx Influenza Vaccination: No Hx Pneumococcal Vaccination: No Review Of Systems Except As Marked, All Systems Reviewed And Found Negative. Constitutional: Negative for: Fever Cardiovascular: Negative for: Chest Pain Respiratory: Negative for: Shortness of Breath Musculoskeletal: Positive for: Leg Pain (w/ swelling) Neurological: Positive for: Numbness (Intermittent tips of left fingers) Physical Exam - Physical Exam Appears: Non-toxic, No Acute Distress Skin: Normal Color, Warm, Dry Head: Atraumatic, Normacephalic Chest: Symmetrical, No Tenderness Cardiovascular: Rhythm Regular Respiratory: Normal Breath Sounds, No Accessory Muscle Use Extremity: Normal ROM (x4), No Pedal Edema, No Deformity, Other (Minor asymmetry between right and left leg, no focal tenderness, no cellulitis, good perfusion, chronic skin changes) Pulses: Left Dorsalis Pedis: Normal, Right Dorsalis Pedis: Normal Neurological/Psych: Oriented x3, Normal Speech, Normal Motor, Normal Sensation Gait: Steady ED Course And Treatment - Laboratory Results Result Diagrams: 06/19/17 20:53 03/06/18 20:53 O2 Sat by Pulse Oximetry: 98 (Room air) Pulse Ox Interpretation: Normal Progress - Re-Evaluation Re-evaluation Note: 06/19/17 21:31 EXAM [facility]. S/P LOVENOX. ADVISED RETURN TOMORROW FOR DVT STUDY. VOICES UNDERSTANDING OF DC PLAN - Data Reviewed Data Reviewed: Lab, Old records Medical Decision Making Medical Decision Making: Plan: * Lovenox * Blood work Disposition Counseled Patient/Family Regarding: Studies Performed, Diagnosis, Need For Followup - Disposition Referrals: [facility] [Provider Group] Disposition: HOME/ ROUTINE Disposition Time: 21:32 Condition: IMPROVED Additional Instructions: RETURN 06/20 TO ER BETWEEN 8-2 PM FOR DOPPLER EXAM OF YOUR LEG FOR LEG SWELLING. Instructions: Peripheral Artery Disease and Claudication, Hand Numbness Forms: [employer] (Be[place]) [employer] (Armenian) - Clinical Impression Clinical Impression: Chronic leg pain, Paresthesia - Scribe Statement The provider has reviewed the documentation as recorded by the Scribdonna Flores All medical record entries made by the Sapnaibdonna were at my direction and personally dictated by me. I have reviewed the chart and agree that the record accurately reflects my personal performance of the history, physical exam, medical decision making, and the department course for this patient. I have also personally directed, reviewed, and agree with the discharge instructions and disposition.
[2017-06-19] MEDS ORDERED: Enoxaparin 40 mg Syringe SC STA (20:33)
[2017-06-19] MEDS ORDERED: Enoxaparin 100 mg Syringe ONE (20:54)
[2017-06-19 20:57] LABS: BASO % 0.8 % (0.0-2.0); EOS % 0.7 % (0.0-4.0); HEMOGLOBIN 11.7 g/dL (12.0-18.0); LYMPH # 1.7 K/uL (1.0-4.3); LYMPH % 28.6 % (20.0-40.0); MEAN CELL VOLUME 94.5 fL (80.0-94.0); MEAN CORPUSCULAR HEMOGLOBIN 31.7 pg (27.0-31.0); MEAN CORPUSCULAR HGB CONC 33.6 g/dL (33.0-37.0); MEAN PLATELET VOLUME 8.4 fL (7.2-11.7); MONO # 0.5 K/uL (0.0-0.8); MONO % 8.3 % (0.0-10.0); NEUT # 3.7 K/uL (1.8-7.0); NEUT % 61.6 % (50.0-75.0); NRBC % 0.1 % (0.0-2.0); RBC 3.68 Mil/uL (4.40-5.90); RED CELL DISTRIBUTION WIDTH 14.5 % (11.5-14.5)
[2017-06-19 21:12] LABS: BLOOD UREA NITROGEN 13 mg/dL (9-20); CALCIUM 9.4 mg/dl (8.6-10.4); GFR AFRICAN-AMERICAN > 60; GFR NON-AFRICAN AMERICAN > 60
[2017-06-19 21:55] VITALS: BP 164/72; PULSE 64; RESP 20
== END 2017-06-19 22:00 | disposition home or self-care (01) ==
LOC: C.ER 19:23
DX: G89.29 Other chronic pain (principal); M79.604 Pain in right leg; R20.2 Paresthesia of skin
CPT/HCPCS: 80048; 85025; 96372; 99284; J1650

== ENCOUNTER 2018-02-11 08:53 | Emergency (ER) | payer MEDICARE, OTHER ==
--- NOTE | 2018-02-11 09:34 | RAD ---
Date of service: 02/11/2018 PROCEDURE: CHEST RADIOGRAPH, 1 VIEW HISTORY: chest pain COMPARISON: None available. FINDINGS: LUNGS: The lungs are well inflated and clear. PLEURA: No pneumothorax or pleural effusion. CARDIOVASCULAR: The heart is normal in size. No aortic atherosclerotic calcifications present. OSSEOUS STRUCTURES: Within normal limits for the patient's age. VISUALIZED UPPER ABDOMEN: Normal. OTHER FINDINGS: None. IMPRESSION: No active pulmonary disease.
[2018-02-11 09:38] LABS: BASO # 0.1 K/uL (0.0-0.2); BASO % 0.9 % (0.0-2.0); EOS % 0.4 % (0.0-4.0); HEMOGLOBIN 12.6 g/dL (12.0-18.0); LYMPH # 1.3 K/uL (1.0-4.3); LYMPH % 17.3 % (20.0-40.0); MEAN CELL VOLUME 95.6 fL (80.0-94.0); MEAN CORPUSCULAR HEMOGLOBIN 31.6 pg (27.0-31.0); MONO # 0.4 K/uL (0.0-0.8); MONO % 5.8 % (0.0-10.0); NEUT # 5.7 K/uL (1.8-7.0); NEUT % 75.6 % (50.0-75.0); RBC 3.99 Mil/uL (4.40-5.90); RED CELL DISTRIBUTION WIDTH 13.2 % (11.5-14.5); WHITE BLOOD COUNT 7.6 K/uL (4.8-10.8)
[2018-02-11 09:46] LABS: INR 1.7; PROTHROMBIN TIME 18.7 SECONDS (9.7-12.2)
[2018-02-11 09:59] LABS: ALB/GLOB RATIO 1.2 (1.0-2.1); ALBUMIN 4.4 g/dL (3.5-5.0); ALT/SGPT 28 U/L (21-72); AST/SGOT 31 U/L (17-59); BLOOD UREA NITROGEN 20 mg/dL (9-20); CALCIUM 9.9 mg/dl (8.6-10.4); GFR NON-AFRICAN AMERICAN > 60
[2018-02-11 10:29] LABS: SQUAMOUS EPITHIAL 1 /hpf (0-5); URINE BILIRUBIN NEGATIVE (NEGATIVE); URINE BLOOD NEGATIVE (NEGATIVE); URINE CLARITY Clear (Clear); URINE COLOR Yellow (YELLOW); URINE GLUCOSE (UA) NORMAL (Normal); URINE LEUKOCYTE ESTERASE NEG Leu/uL (Negative); URINE PROTEIN NEGATIVE (NEGATIVE); URINE UROBILINOGEN NORMAL mg/dL (0.2-1.0)
[2018-02-11] MEDS ORDERED: Iodixanol 320 MG/ML 100 ML BOTTLE IV ONE (10:39)
[2018-02-11 10:59] LABS: BARBITURATES, UR NEGATIVE (NEGATIVE); BENZODIAZEPINES, UR NEGATIVE (NEGATIVE); PHENCYCLIDINE, UR NEGATIVE (NEGATIVE)
[2018-02-11 11:25] LABS: OPIATES, UR POSITIVE (NEGATIVE)
--- NOTE | 2018-02-11 11:53 | CT ---
Date of service: 02/11/2018 PROCEDURE: CT Chest with contrast (Pulmonary Angiogram) HISTORY: right chest pain COMPARISON: None available. TECHNIQUE: Axial computed tomography images were obtained of the chest in the pulmonary arterial phase of enhancement. Coronal and sagittal reformatted images were created and reviewed. Intravenous contrast dose: 100 mL Visipaque 320 Radiation dose: Total exam DLP = 254.95 mGy-cm. This CT exam was performed using one or more of the following dose reduction techniques: Automated exposure control, adjustment of the mA and/or kV according to patient size, and/or use of iterative reconstruction technique. FINDINGS: PULMONARY ARTERIES: Unremarkable. No pulmonary embolism. AORTA: No acute findings. No thoracic aortic aneurysm. No aortic atherosclerotic calcification or mural plaque present. LUNGS: Bilateral lower lobe scarring. Diffuse centrilobular emphysematous changes. No nodule, mass or pulmonary consolidation. PLEURAL SPACES: Unremarkable. No effusion or pneumothorax. HEART: Unremarkable. No cardiomegaly. No significant pericardial effusion. LYMPH NODES: No lymphadenopathy. BONES, CHEST WALL: Unremarkable. No fracture or destructive lesion OTHER FINDINGS: Unremarkable. IMPRESSION: Unremarkable CT pulmonary angiogram. No pulmonary embolus.
[2018-02-11 12:50] VITALS: O2SAT 99
--- NOTE | 2018-02-11 13:33 | C.PDOC ---
History Of Present Illness 67 year old male presents to the ED for evaluation of right-sided chest pain that is worse with deep inspiration and movement, mild shortness of breath which began one week ago. Patient states he was evaluated by [facility] last week and was discharged. Patient has not started taking the medicine that he was prescribed upon discharge. Patient states that he was told that he has a "clot in his lungs." Patient denies fever, chills, nausea, vomiting, extremity numbness/weakness. Time Seen by Provider: 02/11/18 09:08 Chief Complaint (Nursing): Chest Pain History Per: Patient History/Exam Limitations: no limitations Onset/Duration Of Symptoms: Days Current Symptoms Are (Timing): Still Present Severity: Moderate Quality: "Pain" Associated Symptoms: denies: Nausea Exacerbating Factors: Movement, Deep Breathing Alleviating Factors: Rest Additional History Per: Patient Past Medical History Reviewed: Historical Data, Nursing Documentation, Vital Signs Vital Signs: Last Vital Signs Temp 98.7 F 02/11/18 08:57 Pulse 71 02/11/18 12:50 Resp 22 02/11/18 12:50 BP 152/69 H 02/11/18 12:50 Pulse Ox 99 02/11/18 12:50 - Medical History PMH: HTN Denies: Chronic Kidney Disease Other PMH: PVD Surgical History: No Surg Hx Family History: States: Unknown Family Hx - Social History Hx Alcohol Use: Yes ([employer]) Hx Substance Use: No - Immunization History Hx Tetanus Toxoid Vaccination: No Hx Influenza Vaccination: No Hx Pneumococcal Vaccination: No Review Of Systems Constitutional: Negative for: Fever, Chills Cardiovascular: Positive for: Chest Pain (right-sided ) Respiratory: Positive for: Shortness of Breath Gastrointestinal: Negative for: Nausea, Vomiting Neurological: Negative for: Weakness, Numbness Physical Exam - Physical Exam Appears: Non-toxic, No Acute Distress, Unkempt, Other (disheveled) Skin: Normal Color, Warm, Dry Head: Atraumatic, Normacephalic Eye(s): bilateral: Normal Inspection Oral Mucosa: Moist Gingiva: Erythema Throat: Normal, No Erythema Neck: Normal ROM, No Midline Cervical Tenderness, No Paracervical Tenderness, S upple Chest: Symmetrical, No Deformity, Tenderness (right anterio-lateral chest wall) Cardiovascular: Rhythm Regular, No Murmur Respiratory: Normal Breath Sounds, No Rales, No Rhonchi, No Wheezing Gastrointestinal/Abdominal: Soft, No Tenderness Back: No Vertebral Tenderness, No Paraspinal Tenderness Extremity: Normal ROM, No Pedal Edema, Capillary Refill (less than 2 seconds ), No Swelling Neurological/Psych: Oriented x3, Normal Speech, Normal Cognition ED Course And Treatment - Laboratory Results Result Diagrams: 02/11/18 09:33 02/11/18 09:33 ECG: Interpreted By Me, Viewed By Me ECG Rhythm: Sinus Rhythm Interpretation Of ECG: Sinus Rhythm at rate 79bpm. LVH. No acute changes. Rate From EC O2 Sat by Pulse Oximetry: 99 (on RA) Pulse Ox Interpretation: Normal - Other Rad CXR X-Ray: Viewed By Me, Read By Radiologist Interpretation: Date of service: 02/11/2018. PROCEDURE: CHEST RADIOGRAPH, 1 VIEW. HISTORY: chest pain. COMPARISON: None available. FINDINGS: LUNGS: The lungs are well inflated and clear. PLEURA: No pneumothorax or pleural effusion. CARDIOVASCULAR: The heart is normal in size. No aortic atherosclerotic calcifications present. OSSEOUS STRUCTURES: Within normal limits for the patient's age. VISUALIZED UPPER ABDOMEN: Normal. OTHER FINDINGS: None. IMPRESSION: No active pulmonary disease. - CT Scan/US CT Chest Other Rad Studies (CT/US): Read By Radiologist, Radiology Report Reviewed CT/US Interpretation: PROCEDURE: CT Chest with contrast (Pulmonary Angiogram). HISTORY: right chest pain. COMPARISON: None available. TECHNIQUE: Axial computed tomography images were obtained of the chest in the pulmonary arterial phase of enhancement. Coronal and sagittal reformatted images were created and reviewed. Intravenous contrast dose: 100 mL Visipaque 320. Radiation dose: Total exam DLP = 254.95 mGy-cm. This CT exam was performed using one or more of the following dose reduction techniques: Automated exposure control, adjustment of the mA and/or kV according to patient size, and/or use of iterative reconstruction technique. FINDINGS: PULMONARY ARTERIES: Unremarkable. No pu lmonary embolism. AORTA: No acute findings. No thoracic aortic aneurysm. No aortic atherosclerotic calcification or mural plaque present. LUNGS: Bilateral lower lobe scarring. Diffuse centrilobular emphysematous changes. No nodule, mass or pulmonary consolidation. PLEURAL SPACES: Unremarkable. No effusion or pneumothorax. HEART: Unremarkable. No cardiomegaly. No significant pericardial effusion. LYMPH NODES: No lymphadenopathy. BONES, CHEST WALL: Unremarkable. No fracture or destructive lesion. OTHER FINDINGS: Unremarkable. IMPRESSION: Unremarkable CT pulmonary angiogram. No pulmonary embolus. Progress Note: Bloodwork, urinalysis, CT Angio Chest, CXR, EKG ordered and reviewed. No acute finding. Patient is stable to be d/c home with PMD follow up. Disposition - Disposition Disposition: HOME/ ROUTINE Disposition Time: 13:33 Condition: STABLE Additional Instructions: Follow up with your PMD within 1-2 days. Return to ED if feel worse. Take all medications as instructed. Instructions: Chest Pain That Is Not Caused by the Heart (DC) Forms: [employer] (French) - Clinical Impression Clinical Impression: Right-sided chest wall pain - PA / [employer] / Resident Statement MD/DO has reviewed & agrees with the documentation as recorded. - Scribe Statement The provider has reviewed the documentation as recorded by the Scribe (Mariajose Giles) All medical record entries made by the Scribe were at my direction and personally dictated by me. I have reviewed the chart and agree that the record accurately reflects my personal performance of the history, physical exam, medical decision making, and the department course for this patient. I have also personally directed, reviewed, and agree with the discharge instructions and disposition.
[2018-02-11 14:11] VITALS: BP 134/67; PULSE 91; RESP 21; TEMP 99.3
--- NOTE | 2018-02-12 12:31 | CARD ---
APPROVED REPORT Date of service: 02/11/2018 EKG Measurement Heart [id number] <Conclusion> Normal sinus rhythm Possible Left atrial enlargement Left ventricular hypertrophy Cannot rule out Anteroseptal infarct, age undetermined Abnormal ECG
== END 2018-02-11 14:15 | disposition home or self-care (01) ==
LOC: C.ER 08:53
DX: R07.89 Other chest pain (principal)
CPT/HCPCS: 71045; 71275; 80053; 81001; 84484; 85025; 85610; 85730; 93005; 99285; G0480; Q9967